=== PATIENT | female | born 1980 | race African-American/Black ===

== ENCOUNTER 2018-08-10 06:22 | Emergency (ER) | payer BC ==
[~2018-08-10] VITALS: Ht 162.6 cm; Wt 99.3 kg
[~2018-08-10 06:22] MED LIST: IBUPROFEN 800800 M1 PO; NOHOMEMEDICATIONS; NORCO 5-325 TA1 EACH PO; NORVASC5 MG PO; ULTRAM 50MG TAB50 MG PO
[2018-08-10 07:26] LABS: URINE BILIRUBIN NEGATIVE (Negative); URINE BLOOD NEGATIVE (Negative); URINE CLARITY CLEAR; URINE COLOR YELLOW; URINE GLUCOSE-RANDOM* NEGATIVE (Negative); URINE KETONES NEGATIVE (Negative); URINE LEUKOCYTES-REFLEX NEGATIVE (Negative); URINE NITRITE-REFLEX NEGATIVE (Negative); URINE PROTEIN (DIPSTICK) NEGATIVE (Negative); URINE UROBILINOGEN 0.2 E.U./dl (0.2-1.0)
[2018-08-10] MEDS ORDERED: NORCO 5-325 TA1 EACH PO (07:41)
[2018-08-10] MEDS ORDERED: MOBIC15 MG PO (07:41)
[2018-08-10] MEDS ORDERED: VALIUM5 MG PO (07:41)
[2018-08-10 08:45] VITALS: BP 130/89
== END 2018-08-10 08:59 | disposition home or self-care (01) ==
LOC: ER 06:22
PROVIDERS: Emergency Medicine
DX: M54.41 Lumbago with sciatica, right side (principal); Z90.49 Acquired absence of other specified parts of digestive tract

== ENCOUNTER 2021-07-07 19:43 | Emergency (ER) | payer BC, OTHER ==
[~2021-07-07] VITALS: Ht 162.6 cm; Wt 78.5 kg
[~2021-07-07 19:43] MED LIST changes: +MOBIC15 MG PO; +VALIUM5 MG PO
[2021-07-07] MEDS ORDERED: XANAX 0.25 MG0.25 MG PO (20:04)
[2021-07-07] MEDS ORDERED: PERCOCET 5-3251 EACH PO (20:05)
[2021-07-07] MEDS ORDERED: NEURONTIN300 MG PO (20:07)
[2021-07-07] MEDS ORDERED: CYMBALTA30 MG PO (20:07)
[2021-07-07 20:31] LABS: ABSOLUTE NEUTROPHILS 2.3 thou/uL (1.4-8.2); BASOPHILS 1.8 % (0.0-2.0); EOSINOPHILS 1.9 % (0.0-3.0); HEMATOCRIT 34.7 % (37.0-47.0); HEMOGLOBIN 11.3 gm/dL (12.0-15.0); MCH 28.1 pg (26.0-34.0); MCHC 32.7 g/dL (28.0-37.0); MCV 85.9 fL (80.0-100.0); MONOCYTES 6.6 % (1.0-8.0); PLATELET COUNT 232 thou/uL (150-400); POLYS 53.7 % (36.0-66.0); RBC 4.04 mil/uL (4.20-5.00); RDW 16.4 % (10.5-14.5); WBC 4.3 thou/uL (4.0-11.0)
[2021-07-07 22:10] LABS: CALCIUM 8.8 mg/dL (8.5-10.1); CREATININE 0.6 mg/dL (0.6-1.0)
[2021-07-08 00:54] VITALS: BP 158/89
== END 2021-07-08 01:01 | disposition home or self-care (01) ==
LOC: ER 19:43
PROVIDERS: Student in an Organized Health Care Education/Training Program
DX: R55 Syncope and collapse (principal); G52.7 Disorders of multiple cranial nerves; R51.9 Headache, unspecified; R20.0 Anesthesia of skin; M62.81 Muscle weakness (generalized); Z90.49 Acquired absence of other specified parts of digestive tract; Z90.710 Acquired absence of both cervix and uterus; Z79.891 Long term (current) use of opiate analgesic; Z79.1 Long term (current) use of non-steroidal anti-inflammatories (NSAID); Z79.899 Other long term (current) drug therapy

== ENCOUNTER 2021-08-28 16:25 | Emergency (ER) | payer BC, OTHER ==
[~2021-08-28] VITALS: Ht 162.6 cm; Wt 74.8 kg
[~2021-08-28 16:25] MED LIST changes: +CYMBALTA30 MG PO; +NEURONTIN300 MG PO; +PERCOCET 5-3251 EACH PO; +XANAX 0.25 MG0.25 MG PO
[2021-08-28 16:44] LABS: ABSOLUTE NEUTROPHILS 2.3 thou/uL (1.4-8.2); BASOPHILS 1.1 % (0.0-2.0); EOSINOPHILS 2.3 % (0.0-3.0); HEMATOCRIT 37.7 % (37.0-47.0); HEMOGLOBIN 12.8 gm/dL (12.0-15.0); LYMPHOCYTES 39.4 % (24.0-44.0); MCH 27.9 pg (26.0-34.0); MCHC 33.9 g/dL (28.0-37.0); MCV 82.4 fL (80.0-100.0); MONOCYTES 5.9 % (1.0-8.0); PLATELET COUNT 279 thou/uL (150-400); POLYS 51.3 % (36.0-66.0); RBC 4.58 mil/uL (4.20-5.00); RDW 16.1 % (10.5-14.5); WBC 4.5 thou/uL (4.0-11.0)
[2021-08-28 16:49] LABS: CALCIUM 9.3 mg/dL (8.5-10.1); CREATININE 0.6 mg/dL (0.6-1.0)
[2021-08-28 16:55] LABS: ALBUMIN 3.8 g/dL (3.4-5.0); TOTAL BILIRUBIN 0.4 mg/dL (0.2-1.0); TOTAL PROTEIN 7.4 g/dL (6.4-8.2)
[2021-08-28] MEDS ORDERED: XANAX 0.5 MG0.5 M1 PO (17:15)
[2021-08-28] MEDS ORDERED: BENTYL 10 MG CA10 M1 PO (18:16)
[2021-08-28 18:30] VITALS: BP 166/91
== END 2021-08-28 18:31 | disposition home or self-care (01) ==
LOC: ER 16:25
PROVIDERS: Emergency Medicine
DX: R10.9 Unspecified abdominal pain (principal); R20.2 Paresthesia of skin; I10 Essential (primary) hypertension; Z90.49 Acquired absence of other specified parts of digestive tract; Z79.899 Other long term (current) drug therapy